=== PATIENT | female | born 1945 | race Caucasian/White ===

== ENCOUNTER 2024-02-24 10:19 | Outpatient (AMB) | payer MEDICARE, OTHER, SELFPAY ==
[2024-02-24 10:40] VITALS: BP 132/68; PULSE 68; RESP 14; TEMP 36.6; O2SAT 97; BMI 32.8
--- NOTE | 2024-02-24 10:40 | A.OFFPC_ITS ---
Vital Signs 02/24/24 10:40 Height 5 ft 4 in Weight 191 lb BMI 32.8 BP 132/68 Blood Pressure Location Lt brachial Position Sitting Respiration 14 Pulse 68 Pulse Source Pulse Oximeter Temp 97.8 F Temp Source Oral Pulse Oximetry (%) 97 Oxygen Delivery Method Room Air Intake Visit Reasons: Est Care High Cholesterol, Diverticulitis Intake Note: New patient visit Combustion Engineer Required: Yes Combustion Engineer Name: Ana Allergies morphine Adverse Reaction (Unknown, Verified 02/24/24 11:08) dizzy oxycodone Adverse Reaction (Verified 02/24/24 11:08) dizzy Medication List - Last Reconciled 02/24/24 by Yaneth Avitia MD duloxetine 20 mg PO DAILY Tobacco use date assessed: 02/24/24 Fall risk assessment: No Falls in past year Last assessed Fall Risk: 02/24/24 Dental Screening Dental Screen Date: 02/24/24 Did you have a dental visit in the last 12 months?: No Did you have a dental problem in the last 6 months where you did not have access to dental care?: No Was dental information given to patient?: No (Has dentures. Has a dentist to reach out to) HPI HPI Comments History of Present Illness Details This is a 78 year old female with a past medical history of hyperlipidemia, osteoarthritis, anemia presenting for follow up She has been having issues with left knee pain, bilateral sciatica, muscle cramping over the past year. She had u/s of the leg (-) for dvt. Had xray, saw ortho. recently had her second steroid injection. Anxiety/depression: stable on duloxetine 20mg daily [facility] Medical History (Updated 02/24/24 @ 13:28 by Yaneth Avitia MD) Anxiety Shingles Headache Hypercholesteremia Family History (Updated 02/24/24 @ 11:56 by Reva Carter CMA) Mother Psychiatric illness Brother Alcoholism Other FH: mental illness HTN (hypertension) Substance use Social History (Updated 02/24/24 @ 11:10 by Reva Carter CMA) Housing: Condominium Patient Tobacco Use Status: Never used Tobacco e-Cigarette/Vaping Use: Never Used Use of substances other than those prescribed or required for medical reasons: No service: No 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 1. Little interest or pleasure in doing things: not at all 2. Feeling down, depressed, or hopeless: not at all 3. Trouble falling or staying asleep, or sleeping too much: not at all 4. Feeling tired or having little energy: not at all 5. Poor appetite or overeating: not at all 6. Feeling bad about yourself - or that you are a failure or have let yourself or your family down: not at all 7. Trouble concentrating on things, such as reading the newspaper or watching television: not at all 8. Moving or speaking so slowly that other people could have noticed. Or the opposite - being so fidgety or restless that you have been moving around a lot more than usual: not at all 9. Thoughts that you would be better off or of hurting yourself in some way: not at all Total score: 0 Depression Screening Interpretation: Negative Depression Screening Done: Yes 48358 - PHQ-9 Billing: Yes Source: Developed by Drs. Roman De Luna, Mimi Ralph, Baldev Haque and colleagues, with an educational sharron from [employer]. Thrive Questionnaire Date Thrive assessed: 02/24/24 I am a: Patient What is your living situation today?: I have a steady place to live Within the past 12 months, did the food you bought not last and you didn't have the money to get more?: Never true Within the past 12 months, did you worry whether your food would run out before you got money to buy more?: Never true Do you have trouble paying for medicines?: No Do you have trouble getting transportation to medical appointments?: No Do you have trouble paying your heating and electricity bill?: No Do you have trouble taking care of your child, family member or friend?: No Do you have trouble with day-to-day activities such as bathing, preparing meals, shopping, managing finances, etc.?: No Are you currently unemployed and looking for a job?: No Are you interested in more education?: No Please select the resources that you would like help with: None Currently or been in a relationship where the following occur: no concerns reported THRIVE Score: 0 AUDIT C Alcohol Use Questionnaire (AUDIT-C) 1. How often do you have a drink containing alcohol?: Never 3. How often do you have six or more drinks on one occasion?: Never Total Score: 0 ISABELA-7 AMB Questionnaire ISABELA-7 Date ISABELA - 7 assessed: 02/24/24 Feeling nervous, anxious, or on edge: 0 = Not at all Not being able to stop or control worryin = Not at all Worrying too much about different things: 0 = Not at all Trouble relaxin = Not at all Being so restless that it is hard to sit still: 0 = Not at all Becoming easily annoyed or irritable: 0 = Not at all Feeling afraid as if something awful might happen: 0 = Not at all Total ISABELA-7 score (0-4 normal; 5-9 mild; 10-14 moderate; 15-21 severe): 0 Source: Developed by Drs. Roman De Luna, Mimi Ralph, Baldev Haque and colleagues, with an educational sharron from [employer]. ISABELA-7 Assessment Billing ISABELA-7 Assessment Tool: ISABELA-7 Assessment 04190 Review of Systems Const Details: ROS CONSTITUTIONAL: Denies weight loss, fever and chills. HEENT: Denies changes in vision and hearing. RESPIRATORY: Denies SOB and cough. CV: Denies palpitations and CP GI: Denies abdominal pain, nausea, vomiting and diarrhea. : Denies dysuria and urinary frequency. MSK: Denies new myalgia and joint pain. SKIN: Denies rash and pruritus. NEUROLOGICAL: Denies headache PSYCHIATRIC: Denies recent changes in mood. Physical exam (Primary Care) Vital Signs: Last Vital Signs Temp 97.8 F 02/24/24 10:40 Pulse 68 02/24/24 10:40 Resp 14 02/24/24 10:40 BP 132/68 02/24/24 10:40 Pulse Ox 97 02/24/24 10:40 Oxygen Delivery Method Room Air 02/24/24 10:40 BMI result Body Mass Index 32.8 Tobacco/Smoking Status: Tobacco use Status Tobacco use date assessed 02/24/24 02/24/24 11:11 Patient Tobacco Use Status Never used Tobacco 02/24/24 11:11 e-Cigarette/Vaping Use Never Used 02/24/24 11:11 PHQ-9: PHQ-9 Score PHQ-9: Total score 0 02/24/24 12:17 Depression Screening Interpretation: Negative Thrive Assessment: Date of Thrive Assessment Date Thrive assessed 02/24/24 02/24/24 11:11 Currently or been in a relationship where the following occur: no concerns reported Const Other: PHYSICAL EXAM: GENERAL: Alert and oriented x 3. NAD EYES: EOMI. Anicteric. HENT: Moist mucous membranes. LUNGS: Clear to auscultation bilaterally. CARDIOVASCULAR: Regular rate and rhythm. No murmur. No JVD. ABDOMEN: Soft, non-tender +bs EXTREMITIES: No edema. Non-tender. SKIN: No rashes or lesions. Warm. NEUROLOGIC: No focal neurological deficits. CN II-XII grossly intact PSYCHIATRIC: Cooperative. Appropriate mood and affect Assessment and Plan Assessment & Plan (1) Hyperlipidemia: Comment: continue diet low in saturated fats Code(s): E78.5 - Hyperlipidemia, unspecified Qualifiers: Hyperlipidemia type: other hyperlipidemia Qualified Code(s): E78.49 - Other hyperlipidemia (2) Knee pain: Comment: continue ortho follow up Code(s): M25.569 - Pain in unspecified knee Qualifiers: Chronicity: chronic Laterality: left Qualified Code(s): M25.562 - Pain in left knee; G89.29 - Other chronic pain (3) Osteoarthritis: Code(s): M19.90 - Unspecified osteoarthritis, unspecified site Qualifiers: Osteoarthritis location: multiple joints Osteoarthritis type: primary Qualified Code(s): M15.9 - Polyosteoarthritis, unspecified (4) History of diverticulitis: Code(s): Z87.19 - Personal history of other diseases of the digestive system (5) Borderline abnormal TFTs: Code(s): R94.6 - Abnormal results of thyroid function studies (6) Weight gain: Comment: check labs. No fluid retention Code(s): R63.5 - Abnormal weight gain (7) Leg cramp: Code(s): R25.2 - Cramp and spasm Orders: Orders Magnesium Today E78.49 - Other hyperlipidemia, G89.29 - Other chronic pain, M19.90 - Unspecified osteoarthritis, unspecified site, M25.562 - Pain in left knee, R94.6 - Abnormal results of thyroid function studies, Z87.19 - Personal history of other diseases of the digestive system IRON PROFILE Today E78.49 - Other hyperlipidemia, G89.29 - Other chronic pain, M25.562 - Pain in left knee, R25.2 - Cramp and spasm Comprehensive Met. Panel Today E78.49 - Other hyperlipidemia, G89.29 - Other chronic pain, M19.90 - Unspecified osteoarthritis, unspecified site, M25.562 - Pain in left knee, R94.6 - Abnormal results of thyroid function studies, Z87.19 - Personal history of other diseases of the digestive system TSH reflex Free T4 Today R63.5 - Abnormal weight gain, R94.6 - Abnormal results of thyroid function studies, Z87.19 - Personal history of other diseases of the digestive system Medications: New duloxetine 20 mg PO DAILY 90 caps 3RF Coding Level of Care Code Est Pt Level 4 (55777) Complex EM visit Add On G2211 Diagnoses Other hyperlipidemia E78.49 Hyperlipidemia type: other hyperlipidemia Chronic pain of left knee M25.562; G89.29 Chronicity: chronic Laterality: left Primary osteoarthritis involving multiple joints M15.9 Osteoarthritis location: multiple joints Osteoarthritis type: primary History of diverticulitis Z87.19 Borderline abnormal TFTs R94.6 Weight gain R63.5 Leg cramp R25.2 Additional Codes ISABELA-7 Assessment Billing - ISABELA-7 Assessment Tool: ISABELA-7 Assessment 31670 ([id number])
== END 2024-02-24 13:10 | disposition home or self-care (01) ==
PROVIDERS: PCP Internal Medicine; Visit Provider Internal Medicine
DX: E78.49 Other hyperlipidemia (principal); M25.562 Pain in left knee; G89.29 Other chronic pain; M15.9 Polyosteoarthritis, unspecified; Z87.19 Personal history of other diseases of the digestive system; R94.6 Abnormal results of thyroid function studies; R63.5 Abnormal weight gain; R25.2 Cramp and spasm
CPT/HCPCS: 99214; G2211

== ENCOUNTER 2024-02-27 11:36 | Outpatient (REF) | payer MEDICARE, OTHER, SELFPAY ==
[2024-02-27 15:37] LABS: Alanine Aminotransferase 17 U/L (0-31); Albumin Level 4.2 g/dL (3.5-5.0); Alkaline Phosphatase 50 U/L (39-117); Anion Gap 14 (12-20); Aspartate Amino Transferase 17 U/L (5-31); Bilirubin Total 0.5 mg/dL (0.0-1.0); Blood Urea Nitrogen 13 mg/dL (9-16); Calcium 9.3 mg/dL (8.4-10.2); Carbon Dioxide 25 mmol/L (22-29); Chloride 104 mmol/L (96-108); Estimated Glomerular Filt Rate > 60; Glucose Random 92 mg/dL (60-115); Iron 115 mcg/dL (30-160); Magnesium 2.3 mg/dL (1.6-2.6); Percent Iron Saturation 46 % (15-50); Potassium 4.3 mmol/L (3.3-5.1); Sodium 139 mmol/L (135-145); Total Iron Binding Capacity 252 mcg/dL (228-428); Unsaturated Iron Binding 137 ug/dL
[2024-02-27 15:45] LABS: TSH reflex Free T4 1.09 uIU/mL (0.32-4.0)
== END 2024-02-27 11:37 | disposition home or self-care (01) ==
LOC: HO.WFDLDS 11:36
PROVIDERS: Visit Provider Internal Medicine
DX: R94.6 Abnormal results of thyroid function studies (principal); Z87.19 Personal history of other diseases of the digestive system; M19.90 Unspecified osteoarthritis, unspecified site; M25.562 Pain in left knee; G89.29 Other chronic pain; E78.49 Other hyperlipidemia
CPT/HCPCS: 36415; 80053; 83540; 83735; 84443

== ENCOUNTER 2024-07-20 13:39 | Outpatient (AMB) | payer MEDICARE, OTHER, SELFPAY ==
--- NOTE | 2024-07-20 14:03 | MHC.PC.OV ---
Vital Signs 07/20/24 14:15 Height 5 ft 4 in Weight 196 lb 8 oz BMI 33.7 BP 138/80 Blood Pressure Location Lt brachial Position Sitting Respiration 14 Pulse 88 Pulse Source Pulse Oximeter Pulse Oximetry (%) 99 Oxygen Delivery Method Room Air Intake Visit Reasons: Swollen Legs , cramps Intake Note: Bilateral leg swelling. Allergies morphine Adverse Reaction (Unknown, Verified 07/20/24 14:13) dizzy oxycodone Adverse Reaction (Verified 07/20/24 14:13) dizzy Tobacco use date assessed: 02/24/24 Dental Screening Dental Screen Date: 02/24/24 HPI HPI Comments History of Present Illness Details This is a 78 year old female with a past medical history of hyperlipidemia, osteoarthritis, anemia presenting for follow up She has been having issues with left knee pain, bilateral sciatica, muscle cramping over the past year. She had u/s of the leg (-) for dvt. Had xray, saw ortho. recently had her second steroid injection in the left knee. Recently increased pain levels and swelling in both legs and feet but much more so on the left. No shortness of breath, CP or wheezing. Anxiety/depression: stable on duloxetine 20mg daily ROS see HPI PHYSICAL EXAM: GENERAL: Alert and oriented x 3. NAD EYES: EOMI. Anicteric. HENT: Moist mucous membranes. No scleral icterus. No cervical lymphadenopathy. LUNGS: Clear to auscultation bilaterally. CARDIOVASCULAR: Regular rate and rhythm. No murmur. No JVD. ABDOMEN: Soft, non-tender +bs EXTREMITIES: Bilateral non pitting edema L>R. Swellling without redness or warmth left knee. Calves are non tender to palpation. Varicose veings L>R MSK: LS visibly normal, non ttp, Tender SI joint b/l, 4/5 b/l dorsiflexion SKIN: No rashes or lesions. Warm. NEUROLOGIC: CN II-XII grossly intact PSYCHIATRIC: Cooperative. 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 1. Little interest or pleasure in doing things: several days Source: Developed by Drs. Roman De Luna, Mimi Ralph, Baldev Haque and colleagues, with an educational sharron from [employer]. Thrive Questionnaire Date Thrive assessed: 07/20/24 I am a: Patient What is your living situation today?: I have a steady place to live Within the past 12 months, did the food you bought not last and you didn't have the money to get more?: Never true Within the past 12 months, did you worry whether your food would run out before you got money to buy more?: Never true Do you have trouble paying for medicines?: No Do you have trouble getting transportation to medical appointments?: No Do you have trouble paying your heating and electricity bill?: No Do you have trouble taking care of your child, family member or friend?: No Do you have trouble with day-to-day activities such as bathing, preparing meals, shopping, managing finances, etc.?: No Are you currently unemployed and looking for a job?: Yes Are you interested in more education?: No Please select the resources that you would like help with: None Currently or been in a relationship where the following occur: No concerns reported THRIVE Score: 0 AUDIT C Alcohol Use Questionnaire (AUDIT-C) 1. How often do you have a drink containing alcohol?: Never 3. How often do you have six or more drinks on one occasion?: Never Total Score: 0 ISABELA-7 AMB Questionnaire ISABELA-7 Date ISABELA - 7 assessed: 02/24/24 Feeling nervous, anxious, or on edge: 1 = Several days Not being able to stop or control worryin = Several days Worrying too much about different things: 1 = Several days Trouble relaxin = Several days Being so restless that it is hard to sit still: 1 = Several days Becoming easily annoyed or irritable: 0 = Not at all Feeling afraid as if something awful might happen: 0 = Not at all Total ISABELA-7 score (0-4 normal; 5-9 mild; 10-14 moderate; 15-21 severe): 5 Source: Developed by Drs. Roman De Luna, Mimi Ralph, Baldev Haque and colleagues, with an educational sharron from [employer]. Physical exam (Primary Care) Vital Signs: Last Vital Signs Pulse 88 07/20/24 14:15 Resp 14 07/20/24 14:15 BP 138/80 07/20/24 14:15 Pulse Ox 99 07/20/24 14:15 Oxygen Delivery Method Room Air 07/20/24 14:15 BMI result Body Mass Index 33.7 Tobacco/Smoking Status: Tobacco use Status Tobacco use date assessed 02/24/24 07/20/24 14:05 Patient Tobacco Use Status Never used Tobacco 07/20/24 14:05 e-Cigarette/Vaping Use Never Used 07/20/24 14:05 Thrive Assessment: Date of Thrive Assessment Date Thrive assessed 07/20/24 07/20/24 14:05 Currently or been in a relationship where the following occur: No concerns reported Coding Level of Care Code Est Pt Level 4 (85017) Complex EM visit Add On G2211 Diagnoses Pain of left lower extremity M79.605 Laterality: left Leg swelling M79.89 Lumbar radiculopathy M54.16 Chronic pain of left knee M25.562; G89.29 Chronicity: chronic Assessment & Plan Assessment & Plan (1) Leg pain: Code(s): M79.606 - Pain in leg, unspecified Category: Medical Qualifiers: Laterality: left Qualified Code(s): M79.605 - Pain in left leg Plan: Saw orthopedics-Dr Ribera. Persistent despite therapy, NSAIDs, injections. Suspect lower spine pathology. Xray previously with L5S1 degenerate changes, loss of disc height. (2) Leg swelling: Code(s): M79.89 - Other specified soft tissue disorders Category: Medical Plan: Will get Ddimer. u/s 09/2023 negative, Ddimer positive then u/s (3) Lumbar radiculopathy: Code(s): M54.16 - Radiculopathy, lumbar region Category: Medical Plan: see above. MRI ordered (4) Left knee pain: Code(s): M25.562 - Pain in left knee Category: Medical Qualifiers: Chronicity: chronic Qualified Code(s): M25.562 - Pain in left knee; G89.29 - Other chronic pain Plan: Worsened swelling pain. saw ortho had xray, injection. MRI ordered Orders: Orders D Dimer High Sensitivity 07/20/24 I83.893 - Varicose veins of bilateral lower extremities with other complications, M79.606 - Pain in leg, unspecified MR lumbar spine wo con 07/20/24 I83.893 - Varicose veins of bilateral lower extremities with other complications, M48.061 - Spinal stenosis, lumbar region without neurogenic claudication, M54.16 - Radiculopathy, lumbar region, M79.606 - Pain in leg, unspecified MR knee LT wo con 07/20/24 I83.893 - Varicose veins of bilateral lower extremities with other complications, M25.562 - Pain in left knee, M79.606 - Pain in leg, unspecified Lyme IgG/IgM w/reflex to WB 07/20/24 I83.893 - Varicose veins of bilateral lower extremities with other complications, M79.606 - Pain in leg, unspecified Referrals Vascular Surgery Referral I83.893 - Varicose veins of bilateral lower extremities with other complications, M79.606 - Pain in leg, unspecified Medications: New furosemide Take 1 tab oral daily for 3 days, then take 1 tab oral once daily as needed for leg swelling 90 tabs 3RF 90 days baclofen 10 mg PO BID PRN 180 tabs 1RF muscle spasm, leg cramps
[2024-07-20 14:15] VITALS: BP 138/80; PULSE 88; RESP 14; O2SAT 99; BMI 33.7
== END 2024-07-20 16:24 | disposition home or self-care (01) ==
PROVIDERS: PCP Internal Medicine; Visit Provider Internal Medicine
DX: M79.605 Pain in left leg (principal); M79.89 Other specified soft tissue disorders; M54.16 Radiculopathy, lumbar region; M25.562 Pain in left knee; G89.29 Other chronic pain

== ENCOUNTER → 2024-07-20 13:39 | Outpatient (BNVA) | payer MEDICARE, OTHER, SELFPAY | PROVIDERS: PCP Internal Medicine; Visit Provider Internal Medicine ==

== ENCOUNTER 2024-07-20 15:09 | Outpatient (REF) | payer MEDICARE, OTHER, SELFPAY ==
[2024-07-20 19:15] LABS: D Dimer High Sensitivity 253 NG/ML
[2024-07-21 19:37] LABS: Lyme Blot 2.07 index
[2024-07-22 12:03] LABS: Lyme Abs Screen POSITIVE
[2024-07-22 22:09] LABS: 18 KD (IgG) Band NON-REACTIVE; 23 KD (IgG) Band NON-REACTIVE; 23 KD (IgM) Band NON-REACTIVE; 28 KD (IgG) Band NON-REACTIVE; 30 KD (IgG) Band NON-REACTIVE; 39 KD (IgM) Band NON-REACTIVE; 39KD (IgG) Band NON-REACTIVE; 41 KD (IgM) Band NON-REACTIVE; 41KD (IgG) Band NON-REACTIVE; 45 KD (IgG) Band NON-REACTIVE; 58 KD (IgG) Band REACTIVE; 66 KD (IgG) Band NON-REACTIVE; 93 KD (IgG) Band REACTIVE; Lyme IgG Blot Interp NEGATIVE (NEGATIVE); Lyme IgM Blot Interp NEGATIVE (NEGATIVE)
== END 2024-07-20 15:10 | disposition home or self-care (01) ==
LOC: HO.WFDLDS 15:09
PROVIDERS: Visit Provider Internal Medicine
DX: M79.605 Pain in left leg (principal); M79.89 Other specified soft tissue disorders; M54.16 Radiculopathy, lumbar region; G89.29 Other chronic pain; M25.562 Pain in left knee; I83.893 Varicose veins of bilateral lower extremities with other complications
CPT/HCPCS: 36415; 85379; 86617; 86618; 99212

== ENCOUNTER 2024-09-01 11:09 | Outpatient (AMB) | payer MEDICARE, OTHER, SELFPAY ==
--- NOTE | 2024-09-01 11:29 | MHC.OFFVIS ---
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 Patient states she has severe pain in both legs , left leg worse. Pain starts in the thigh and radiates down to the foot. Painful to the touch. 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 Complaints include pain over varicosities, swelling of lower extremities, cramping, fatigue, and heaviness of the lower extremities. It has been affecting their daily activities including walking, standing, or grocery shopping. It is noted more so in left leg. She is not a diabetic and has never been a smoker. She has been ruled out for a DVT and PE, on 09/29/2023, at [facility]. Patient denies any previous venous surgery or injections. Patient denies any history of DVT/ PE. Patient denies any history of phlebitis. Trial of compression includes - elevation with some relief. Compression stockings also with some relief. They now present for vascular evaluation regarding their varicose veins. 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) Hearing needs: Yes (hard of hearing) Vision needs: Yes (glasses) Review of Systems Const Reports as per HPI and Denies weakness ENT Reports Normal hearing present and Denies dizziness Card Reports as per HPI, Denies chest pain, Denies chest pain at rest, Denies chest pain with activity, Denies dyspnea and Denies dyspnea on exertion Resp Reports as per HPI, Denies cough, Denies dyspnea and Denies dyspnea on exertion GI Reports as per HPI, Denies abdominal pain, Denies nausea and Denies vomiting Musc Denies numbness Skin/Breast Reports as per HPI, Denies erythema and Denies wounds Neuro Reports Normal hearing present, Denies dizziness, Denies numbness, Denies Sensory deficit (Neuro) and Denies weakness Psych Reports no additional complaints Endo Reports no additional complaints Physical Exam Const General: healthy appearing and no acute distress Orientation/consciousness: patient oriented x3 HEENT Head: Yes normal to inspection Ears: hearing grossly normal bilaterally Mouth: Normal oral and palatal mucosa present Resp Effort & Inspection: normal respiratory effort and able to speak in complete sentences Auscultation: clear to auscultation bilaterally Cardio Jugular venous distension: no JVD Rate: regular rate Rhythm: regular rhythm Heart sounds: S1 normal heart sound present and S2 normal heart sound present Bruits: no abdominal aortic bruits, no carotid bruits, no femoral bruits and no renal bruits Peripheral pulses: Peripheral pulses 2+ throughout GI Inspection: Yes normal to inspection Palpation (GI): No Abdominal aortic bruit present Skin General skin exam: no rashes or lesions noted Wounds: no wounds Hair: normal Neuro General: patient oriented x3 Cranial nerves: Yes Normal hearing present Cognition (Neuro): normal cognition Gait exam (Neuro): Normal gait present Motor exam (neuro): 5/5 motor strength present throughout Sensory Exam: No Sensory deficit (Neuro) Extrem Other: Bilateral lower extremities: +1 edema noted. Palpable DP pulses. Discoloration noted from mid inman down to the toes. Left lower extremity: Tortuosity noted on the medial aspect above and below the knee. Multiple spider veins noted all throughout lower extremity and on top of the foot. Right lower extremity: Spider veins noted around the knee and on the anterior aspect of the tibial area. CEAP: C - 4 E - primary A - superficial P - reflux General: Yes normal to inspection, Yes full ROM, Yes capillary refill normal and Yes normal gait Assessment & Plan Assessment & Plan (1) Varicose veins of both lower extremities with inflammation: Code(s): I83.11 - Varicose veins of right lower extremity with inflammation; I83.12 - Varicose veins of left lower extremity with inflammation Category: Medical Plan: Poornima is presenting today as a referral from her PCP for ongoing varicose vein concerns. She states the been going on for over a year now, just worsening. She has used elevation as well as compression stockings with only minimal relief. She is also been on a water pill, which she states it has only been a slight relief as well. She just recently finished treatment for Lyme disease and was initially thought the swelling could be due to that; however, the swelling continues. She is a nonsmoker and nondiabetic. In short, the patient has evidence of venous insufficiency. I have discussed the pathophysiology with the patient. In addition I have provided informational material regarding venous disease to the patient. We have discussed conservative measures including compression, elevation, and exercise. I have also provided a handout regarding appropriate use of compression stockings. I have taken the liberty of ordering venous insufficiency testing with the patient. They will follow up with me after testing. The patient had an opportunity to ask questions regarding the treatment plan. All questions were answered. We discussed possible tx options if the US were to show venous insufficiency. We did discuss that if we did do treatment (based on US) it may not cure all of what has been ailing her. No major barriers to understanding were identified. The patient expressed understanding and agreement with the above treatment plan. The patient is aware they should contact our office by phone for worsening of the current condition or the appearance of new symptoms. Thank you for allowing me to participate in the vascular care of this patient. If you have any questions or concerns regarding the treatment for the above condition please do not hesitate to contact me. The office telephone contact is [phone]. This note is constructed using voice recognition software. While every effort has been made to ensure accuracy, evp operations errors may have been included. Thank you for allowing me to participate in the care of your patient. Yours sincerely, HENRIQUE Schreiber Orders: Orders US venous duplex LE BI 1 Week I83.11 - Varicose veins of right lower extremity with inflammation, I83.12 - Varicose veins of left lower extremity with inflammation Coding Level of Care Code New Pt Level 4 (41277) Diagnoses Varicose veins of both lower extremities with inflammation I83.11; I83.12
== END 2024-09-01 11:54 | disposition home or self-care (01) ==
PROVIDERS: PCP Internal Medicine; Visit Provider Physician Assistant Surgical
DX: I83.11 Varicose veins of right lower extremity with inflammation (principal); I83.12 Varicose veins of left lower extremity with inflammation
CPT/HCPCS: 99204

== ENCOUNTER → 2024-09-01 11:09 | Outpatient (BNVA) | payer MEDICARE, OTHER, SELFPAY | PROVIDERS: PCP Internal Medicine; Visit Provider Physician Assistant Surgical | DX: I83.11 Varicose veins of right lower extremity with inflammation (principal); I83.12 Varicose veins of left lower extremity with inflammation | CPT/HCPCS: 99202 ==

== ENCOUNTER 2024-09-22 10:14 | Outpatient (REF) | payer MEDICARE, OTHER, SELFPAY | END 2024-09-22 10:15 | disposition home or self-care (01) | LOC: HO.US 10:14 | PROVIDERS: PCP Internal Medicine; Visit Provider Physician Assistant Surgical | DX: I83.11 Varicose veins of right lower extremity with inflammation (principal); I83.12 Varicose veins of left lower extremity with inflammation | CPT/HCPCS: 93970 ==

== ENCOUNTER 2024-10-13 12:55 | Outpatient (AMB) | payer MEDICARE, OTHER, SELFPAY ==
--- NOTE | 2024-10-13 13:06 | A.OFFVIS_ITS ---
Intake Visit Reasons: follow up s/p US 09/22/24 Intake Note: Patient presents for US performed on 09/24/24. At previous appointment patient stated her left leg was worse than the right, both feel the same now. Accompanied by: Grand Child Allergies morphine Adverse Reaction (Unknown, Verified 10/13/24 13:09) dizzy oxycodone Adverse Reaction (Verified 10/13/24 13:09) dizzy HPI HPI follow up s/p US 09/22/24: Details: Very pleasant 79-year-old female presents for routine follow-up regarding venous disease. She has had no significant interval changes. She reports that compression has provided minimal relief. She has had no interval issues. She now presents for routine follow-up. 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) Hearing needs: Yes (hard of hearing) Vision needs: Yes (glasses) Review of Systems Const All systems reviewed & are unremarkable except as noted in HPI and below Reports no additional complaints ENT Reports Normal hearing present Card Denies chest pain, Denies chest pain at rest, Denies chest pain with activity and Denies pedal edema Resp Denies cough GI Denies abdominal pain Musc Denies abnormal gait, Denies muscle cramps and Denies radiating pain into limb Skin/Breast Denies skin ulcer and Denies wounds Neuro Reports Normal hearing present and Denies abnormal gait Psych Reports no additional complaints Physical Exam Const General: cooperative, healthy appearing and comfortable Orientation/consciousness: oriented to person, oriented to place and oriented to time HEENT Head: Yes normal to inspection Neck Neck: Yes normal visual inspection Carotids: no bruits Chest Chest palpation & inspection: normal inspection of the chest Resp Effort & Inspection: normal respiratory effort and able to speak in complete sentences Auscultation: clear to auscultation bilaterally, no crackles, no rales, no rhonchi and no wheezes Cardio Rate: regular rate Rhythm: regular rhythm Heart sounds: S1 normal heart sound present and S2 normal heart sound present Bruits: no carotid bruits Peripheral pulses: Peripheral pulses 2+ throughout GI Inspection: Yes normal to inspection Skin Wounds: no wounds Hair: normal Neuro General: oriented to person, oriented to place and oriented to time Cranial nerves: Yes CN's II-XII intact bilaterally and Yes Normal hearing present Cognition (Neuro): normal cognition Motor exam (neuro): 5/5 motor strength present throughout Extrem Other: venous exam: No significant superficial varicosities or spider telangiectasias, minimal edema General: No clubbing, No cyanosis and No edema Psych Appearance: grossly normal Mental Status: mental status grossly normal Speech and movement: Normal speech and movement present Results Reviewed Results Reviewed: Brief summary of venous insufficiency testing is as follows: right great saphenous vein: negative right small saphenous vein: negative right accessory vein: none present left great saphenous vein: negative left small saphenous vein: negative left accessory vein: none present Please note there is no evidence of any venous aneurysms or significant tortuosity Assessment & Plan Assessment & Plan (1) Varicose veins of both lower extremities with inflammation: Code(s): I83.11 - Varicose veins of right lower extremity with inflammation; I83.12 - Varicose veins of left lower extremity with inflammation Category: Medical Plan: In short patient is negative for any significant venous insufficiency. At the current time I would recommend only conservative measures including compression elevation and exercise. She will follow up with us on an as-needed basis. Thank you for allowing us to assist in her care. If there are any questions or concerns please do not hesitate to contact us. Coding Level of Care Code Est Pt Level 4 (66538) Diagnoses Varicose veins of both lower extremities with inflammation I83.11; I83.12
== END 2024-10-13 13:23 | disposition home or self-care (01) ==
PROVIDERS: PCP Internal Medicine; Visit Provider Surgery Vascular Surgery
DX: I83.11 Varicose veins of right lower extremity with inflammation (principal); I83.12 Varicose veins of left lower extremity with inflammation
CPT/HCPCS: 99214

== ENCOUNTER → 2024-10-13 12:55 | Outpatient (BNVA) | payer MEDICARE, OTHER, SELFPAY | PROVIDERS: PCP Internal Medicine; Visit Provider Surgery Vascular Surgery | DX: I83.11 Varicose veins of right lower extremity with inflammation (principal); I83.12 Varicose veins of left lower extremity with inflammation | CPT/HCPCS: 99212 ==

== ENCOUNTER → 2024-10-17 19:09 | Outpatient (BNV) | payer MEDICARE, OTHER, SELFPAY | PROVIDERS: PCP Internal Medicine; Visit Provider Radiology Diagnostic Radiology | DX: M54.16 Radiculopathy, lumbar region (principal); M25.562 Pain in left knee | CPT/HCPCS: 72148 ==

== ENCOUNTER 2024-10-17 19:23 | Outpatient (REF) | payer MEDICARE, OTHER, SELFPAY ==
--- NOTE | ~2024-10-17 | MR_ITS ---
EXAMINATION: MR LUMBAR SPINE WITHOUT IV CONTRAST History: M54.16 - Radiculopathy, lumbar region Technique: Sagittal T1, T2 and STIR, and axial T1 and T2 weighted images of the lumbar spine were obtained per departmental protocol. Comparison: None available. Findings: The vertebral bodies maintain normal height, alignment, and marrow signal intensity. There is mild degenerative disc disease with disc indication loss of disc height. At T12-L1,there is no evidence of disc herniation, central spinal stenosis, or neural foraminal narrowing. At L1-2, there is no evidence of disc herniation, central spinal stenosis, or neural foraminal narrowing. At L2-3, there is a mild disc bulge. There is facet and ligamentum flavum hypertrophy causing narrowing of the inferior recesses of the bilateral neural foramen. There is no central spinal stenosis. At L3-4, there is a diffuse moderate disc bulge. There is moderate facet and ligamentum flavum hypertrophy causing bilateral neural foraminal narrowing. There is no central spinal stenosis. At L4-5, there is a mild disc bulge. There is facet osteoarthritis causing narrowing of the inferior recesses of the bilateral neural foramen. There is no central spinal stenosis. At L5-S1, there is mild facet hypertrophy causing narrowing of the inferior recesses of the neural foramen. There is no central spinal stenosis. The conus terminates at the T12-L1 level and demonstrates normal signal intensity. The visualized paraspinal soft tissues are unremarkable. MR/MR lumbar spine wo con Impression: Degenerative changes of the lumbar spine as described. Electronically signed by: Roman Sequeira MD 10/19/2024 10:21 AM KRIS
--- NOTE | ~2024-10-17 | MR_ITS ---
CLINICAL HISTORY: M25.562 - Pain in left knee MR left knee without gadolinium Comparison: None Findings: No acute fracture or pathologic bone lesion. Mild subchondral degenerative marrow edema within the mid and posterior weight-bearing aspects of the medial femoral condyle. Moderate subchondral degenerative marrow edema and subchondral cyst formation within the mid and posterior weight-bearing aspects of the medial tibial plateau. Severe articular cartilage loss diffusely overlies the weight-bearing aspects of the medial femoral condyle and medial tibial plateau. Articular cartilage fibrillation overlies the lateral patellar apex. Moderate knee joint effusion. Trace Easley's cyst. Posterior cruciate ligament is intact. There is moderate T2 signal elevation within and surrounding the anterior cruciate ligament. No disruption of the patellar retinacula or iliotibial band. No tears of the quadriceps, patellar, popliteus, or flexor tendons. Medial extrusion of the medial meniscus. Linear oblique and amorphous high signal intensity traverses the inner, middle, and peripheral thirds of the medial meniscal body and posterior horn, demonstrating inferior articular surface extension, indicating oblique tearing. Radial tearing of the posterior horn medial meniscus at the meniscal root ligament insertion site. Amorphous high signal intensity within the inner, middle, and peripheral thirds of the anterior horn lateral meniscus, demonstrating superior articular surface extension, indicating degenerative tearing. IMPRESSION: 1. ACL sprain. 2. Medial and lateral meniscal tearing. 3. Tricompartmental osteoarthritis with associated articular cartilage loss. 4. Knee joint effusion and Easley's cyst. This document has been electronically signed by: Negrita Martin MD on 10/19/2024 18:23:31
== END 2024-10-17 19:24 | disposition home or self-care (01) ==
LOC: HO.MRI 19:23
PROVIDERS: PCP Internal Medicine; Visit Provider Internal Medicine
DX: M25.562 Pain in left knee (principal); I83.893 Varicose veins of bilateral lower extremities with other complications; M54.16 Radiculopathy, lumbar region; M48.061 Spinal stenosis, lumbar region without neurogenic claudication
CPT/HCPCS: 72148; 73721

== ENCOUNTER 2025-09-28 09:56 | Outpatient (AMB) | payer MEDICARE, OTHER, SELFPAY ==
--- NOTE | 2025-09-28 10:25 | MHC.PC.OV ---
Vital Signs 09/28/25 10:31 Height 5 ft 4 in Weight 190 lb 2 oz BMI 32.6 BP 138/64 Blood Pressure Location Rt brachial Position Sitting Respiration 15 Pulse 77 Pulse Source Pulse Oximeter Temp 97.4 F Temp Source Temporal Artery Scan Pulse Oximetry (%) 97 Oxygen Delivery Method Room Air Intake Visit Reasons: pre op clearance cataract Intake Note: Poornima presents in the office today for a pre-op clearance. [employer] Required: No Is last menstrual period known: No Post menopausal: Yes Patient : No Allergies morphine Adverse Reaction (Unknown, Verified 09/28/25 10:28) dizzy oxycodone Adverse Reaction (Verified 09/28/25 10:28) dizzy Tobacco use date assessed: 09/28/25 Fall risk assessment: No Falls in past year Last assessed Fall Risk: 09/28/25 Dental Screening Dental Screen Date: 09/28/25 Did you have a dental visit in the last 12 months?: No Did you have a dental problem in the last 6 months where you did not have access to dental care?: No Was dental information given to patient?: Patient declined HPI HPI Comments History of Present Illness Details This is a 80 year old female with a past medical history of hyperlipidemia, osteoarthritis, anemia presenting for preoperative cardiac assessment in advance of cataract surgery Bilateral cataract Oct 27, Nov 25-Dr Mcmahon Patient chest pain, no shortness of breath Tolerates anesthesia well Doing housework, walking MSK: Stable left knee pain, bilateral sciatica, muscle cramping She had u/s of the leg (-) for dvt. Had xray, saw ortho. recently had her second steroid injection in the left knee. Recently increased pain levels and swelling in both legs and feet but much more so on the left. No shortness of breath, CP or wheezing. Anxiety/depression: stable on duloxetine 20mg daily ROS see HPI PHYSICAL EXAM: GENERAL: Alert and oriented x 3. NAD EYES: EOMI. Anicteric. HENT: Moist mucous membranes. No scleral icterus. No cervical lymphadenopathy. LUNGS: Clear to auscultation bilaterally. CARDIOVASCULAR: Regular rate and rhythm. No murmur. No JVD. ABDOMEN: Soft, non-tender +bs EXTREMITIES: +PT pulses SKIN: No rashes or lesions. Warm. NEUROLOGIC: CN II-XII grossly intact PSYCHIATRIC: Cooperative. 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 1. Little interest or pleasure in doing things: not at all 2. Feeling down, depressed, or hopeless: not at all 3. Trouble falling or staying asleep, or sleeping too much: not at all 4. Feeling tired or having little energy: not at all 5. Poor appetite or overeating: not at all 6. Feeling bad about yourself - or that you are a failure or have let yourself or your family down: not at all 7. Trouble concentrating on things, such as reading the newspaper or watching television: not at all 8. Moving or speaking so slowly that other people could have noticed. Or the opposite - being so fidgety or restless that you have been moving around a lot more than usual: not at all 9. Thoughts that you would be better off or of hurting yourself in some way: not at all Total score: 0 Source: Developed by Drs. Roman De Luna, Mimi Ralph, Baldev Haque and colleagues, with an educational sharron from [employer]. Thrive Questionnaire Date Thrive assessed: 07/20/24 I am a: Patient What is your living situation today?: I have a steady place to live Within the past 12 months, did the food you bought not last and you didn't have the money to get more?: Never true Within the past 12 months, did you worry whether your food would run out before you got money to buy more?: Never true Do you have trouble paying for medicines?: No Do you have trouble getting transportation to medical appointments?: No Do you have trouble paying your heating and electricity bill?: No Do you have trouble taking care of your child, family member or friend?: No Do you have trouble with day-to-day activities such as bathing, preparing meals, shopping, managing finances, etc.?: No Are you currently unemployed and looking for a job?: No Are you interested in more education?: No Please select the resources that you would like help with: None Currently or been in a relationship where the following occur: No concerns reported THRIVE Score: 0 AUDIT C Alcohol Use Questionnaire (AUDIT-C) 1. How often do you have a drink containing alcohol?: Never Total Score: 0 ISABELA-7 AMB Questionnaire ISABELA-7 Date ISABELA - 7 assessed: 02/24/24 Feeling nervous, anxious, or on edge: 1 = Several days Not being able to stop or control worryin = Not at all Worrying too much about different things: 1 = Several days Trouble relaxin = Not at all Being so restless that it is hard to sit still: 0 = Not at all Becoming easily annoyed or irritable: 0 = Not at all Feeling afraid as if something awful might happen: 0 = Not at all Total ISABELA-7 score (0-4 normal; 5-9 mild; 10-14 moderate; 15-21 severe): 2 Source: Developed by Drs. Roman De Luna, Mimi Ralph, Baldev Haque and colleagues, with an educational sharron from [employer]. Physical exam (Primary Care) Vital Signs: Last Vital Signs Temp 97.4 F 09/28/25 10:31 Pulse 77 09/28/25 10:31 Resp 15 09/28/25 10:31 BP 138/64 09/28/25 10:31 Pulse Ox 97 09/28/25 10:31 Oxygen Delivery Method Room Air 09/28/25 10:31 BMI result Body Mass Index 32.6 Tobacco/Smoking Status: Tobacco use Status Tobacco use date assessed 09/28/25 09/28/25 10:35 Patient Tobacco Use Status Never used Tobacco 09/28/25 10:26 e-Cigarette/Vaping Use Never Used 09/28/25 10:26 PHQ-9: PHQ-9 Score PHQ-9: Total score 0 09/28/25 10:39 Thrive Assessment: Date of Thrive Assessment Date Thrive assessed 07/20/24 09/28/25 10:26 Currently or been in a relationship where the following occur: No concerns reported Coding Level of Care Code Est Pt Level 4 (18149) Diagnoses Encounter for preoperative assessment Z01.818 Assessment & Plan Assessment & Plan (1) Encounter for preoperative assessment: Code(s): Z01.818 - Encounter for other preprocedural examination Category: Medical Plan Preop assessement cataract surgery RCRI 0 METS>/= 4 EKG non ischemic Avg risk patient for low risk procedure. Patient is able to proceed with planned surgery without further cardiac testing
[2025-09-28 10:31] VITALS: BP 138/64; PULSE 77; RESP 15; TEMP 36.3; O2SAT 97; BMI 32.6
== END 2025-09-28 12:22 | disposition home or self-care (01) ==
LOC: HO.HMCFM 09:57
PROVIDERS: PCP Internal Medicine; Visit Provider Internal Medicine
DX: Z01.818 Encounter for other preprocedural examination (principal)

== ENCOUNTER → 2025-09-28 09:56 | Outpatient (BNVA) | payer MEDICARE, OTHER, SELFPAY | PROVIDERS: PCP Internal Medicine; Visit Provider Internal Medicine | DX: Z01.818 Encounter for other preprocedural examination (principal); H26.9 Unspecified cataract; E78.5 Hyperlipidemia, unspecified; M19.90 Unspecified osteoarthritis, unspecified site; D64.9 Anemia, unspecified; Z13.30 Encounter for screening examination for mental health and behavioral disorders, unspecified | CPT/HCPCS: 99212 ==